=== PATIENT | female | born 1970 | race Caucasian/White ===

== ENCOUNTER 2016-12-22 14:35 | Emergency (ER) | payer SELFPAY ==
[2016-12-22] MEDS ORDERED: LORazepam 1 MG TABLET ONE (15:14)
[2016-12-22 15:17] LABS: Hematocrit 33.8 % (37.0-47.0); Hemoglobin 11.7 gm/dL (12.5-16.0); Mean Cell Volume 87.8 fl (78-100); Mean Corpuscular Hemoglobin 30.4 pg (27-31); Mean Corpuscular Hgb Conc 34.6 g/dl (32-36); Mean Platelet Volume 9.6 fl (6.0-9.5); Neutrophil # 4.4 K/mm3 (1.3-6.0); Platelet Count 325 K/mm3 (150-450); Red Blood Count 3.85 M/mm3 (4.2-5.4); Red Cell Distribution Width 12.6 % (11.5-14.0); White Blood Count 8.2 K/mm3 (4.0-10.5)
[2016-12-22] MEDS ORDERED: LORazepam 1 MG TABLET PO ONE (15:18)
[2016-12-22] MEDS ORDERED: BELLADONNA ALKALOIDS/PHENOBARB 60 ML BTL PO ONE (15:18)
[2016-12-22] MEDS ORDERED: SUCRALFATE 1 G/10 ML UDC PO ONE (15:18)
[2016-12-22] MEDS ORDERED: MAG HYDROX/ALUMINUM HYD/SIMETH 30 ML UDC PO ONE (15:18)
[2016-12-22] MEDS ORDERED: LIDOCAINE HCL 20 ML UDC PO ONE (15:18)
--- OUTSIDE RECORDS SUMMARY | 2016-12-22 15:29 | XMS REPORT | Continuity of Care Document ---
:1970 Author Organization [facility] ([facility]) Address [address] [place] [address] Phone [phone] Care Team Providers Name Role Phone Provider, No-Primary Care Primary Care Provider Unavailable Source Comments This disclosure is being made pursuant to the Care Everywhere program, applicable federal and state laws, and may not contain all informaitonavailable regarding this patient.[facility] ([facility]) Active Allergies and Adverse Reactions Not on File Current Medications Not on file Active Problems Problem Noted Date Recurrent dislocation of joint, site unspecified 07/05/2002 Follow-up examination, following unspecified surgery 05/25/2002 Other specified disorders of rotator cuff syndrome of shoulder and allied 05/2002 disorders Unspecified arthropathy, shoulder region 11/15/2001 Social History Tobacco Use Types Packs/Day Years Used Date Never Assessed Plan of Care Health Maintenance Due Date Last Done Comments Hepatitis B Vaccine (1 of 3 - Primary Series) 1970 Tdap Vaccine 1982 Lipid Disorder Screening 1989 MMR Vaccine 1989 Td Vaccine 1989 Cervical Cancer Screening 2001 Mammogram 2011 Influenza Vaccine: Seasonal (#1) 05/10/2016 Results from Last 3 Months Not on file
[2016-12-22 15:32] LABS: INR 1.06 INR (0.90-1.10); Partial Thrombolplastin Time 28.7 Seconds (24-32)
[2016-12-22 15:34] LABS: ALT 12 U/L (19-67); AST 11 U/L (0-48); Albumin * 3.6 gm/dl (3.4-5.0); Alkaline Phosphatase * 64 U/L (50-170); Anion Gap 15.7 mmol/L (6.8-13.8); BUN/Creatinine Ratio 9.5 (9.0-21.6); Bilirubin, Total 0.4 mg/dL (0.0-1.1); Blood Urea Nitrogen 7 mg/dL (3-23); Ca. Corrected For Albumin 8.6 mg/dL (8.4-10.2); Calcium * 8.6 mg/dL (7.9-10.9); Carbon Dioxide 22.8 mmol/L (24-32.6); Chloride 100 mmol/L (97-106); Glucose * 102 mg/dL (70-110); Potassium 3.5 mmol/L (3.4-4.6); Sodium 135 mmol/L (132-142); Total Protein 6.8 gm/dL (6.2-8.2); Troponin I Less than 0.017 ng/ml (0.00-0.10)
--- NOTE | 2016-12-22 15:59 | ERNOTE ---
Chest Pain/Cardiac HPI Date of Service: 12/22/16 Chief Complaint: Chest Pain Time Seen by Provider: 12/22/16 15:17 Source: patient Exam Limitations: no limitations Immunizations: IMMUNIZATION HX Immunizations Up to Date Yes History of Influenza Vaccine Yes Hx Pneumococcal Vaccination Yes Allergies/Adverse Reactions: Allergies No Known Allergies Allergy (Verified 12/22/16 15:58) Home Medications: HOME MEDICATIONS Naproxen [Naprosyn] 1 tab PO Q12H PRN #60 tab 12/22/16 [Last Taken Unknown] Orphenadrine Citrate [Norflex] 1 tab PO Q12H PRN #20 tablet.sa 12/22/16 [Last Taken Unknown] Verapamil HCl [Verapamil ER] 180 mg PO BID 12/22/16 [Last Taken Unknown] Narrative: Presents with c/o chest pain, onset 3 days ago, characterized as spasms/ fluttering of her chest in mid sternal area. Pt states occurrences have been intermittent, and when it does, it "takes my breath away", she says. Other symptoms include tingling sensation in both UE, and radiation of pain into her mid back. Denies any fever, chills, or cough. Timing: intermittent Severity/Quality: severe, aching, sharp, stabbing Location: central Chest Pain Radiation: back Activities at Onset: none Associated Symptoms: Present: shortness of breath, heartburn. Absent: headache , dizziness, syncope, cough, diaphoresis, fever/chills, palpitations, nausea, vomiting, abdominal pain, weakness, back pain, swelling/lump in chest Review of Systems - Review of Systems Constitutional: Present: no symptoms reported EYE: Present: no symptoms reported ENT: Present: no symptoms reported Respiratory: Present: no symptoms reported Cardiology: Present: See HPI, chest pain Gastrointestinal/Abdominal: Present: no symptoms reported Genitourinary: Present: no symptoms reported Musculoskeletal: Present: no symptoms reported Skin: Present: no symptoms reported Neurological: Present: no symptoms reported Endocrine: Present: no symptoms reported Hematologic/Lymphatic: Present: no symptoms reported Psych: Present: emotional problems All Other Systems: All systems neg except as marked - Social History Living Situations: spouse Abuse History: No History of abuse Psych History: No pertinent hx Smoking Status: Current every day smoker Have you smoked in the past 12 months: Yes Smoking Start Date: 12/22/16 Alcohol Use: none Drug Use: none - Immunizations Immunizations Up to Date: Yes Hx Pneumococcal Vaccination: Yes History of Influenza Vaccine: Yes Physical Exam - Physical Exam General Appearance: Present: wd/wn, alert, mild distress - Due to anxiety. , anxious Eye Exam: Normal inspection: bilateral, PERRL: bilateral, EOMI: bilateral Ears, Nose, Throat: Present: normal ENT inspection, normal pharynx Neck: Present: normal inspection, nontender Respiratory: Present: no respiratory distress, normal breath sounds, no accessory muscle use, lungs clear, chest tenderness - moderate TTP of mid- sternum and left anterior chest wall. Pain reproduced. Cardiovascular/Chest: Present: regular rate, rhythm, no murmur Gastrointestinal/Abdominal: Present: normal bowel sounds, nontender, nondistended, soft, no organomegaly Back Exam: Present: normal range of motion Neurological Exam: Present: alert, oriented, normal mood/affect, no motor/ sensory deficits Skin Exam: Present: normal color, warm/dry ED Progress - Results and Orders Patient's Lab Results:: I have reviewed the patient's lab results. - Vital Signs Patient's Vital Signs:: I have reviewed the patient's vital signs. Vital Signs: Vital Signs 12/22/16 12/22/16 12/22/16 14:39 15:00 15:45 Temperature 37.1 C 37.1 C 37.3 C Pulse Rate 81 81 83 Respiratory 24 H 24 H 16 Rate Blood Pressure 144/88 144/88 135/86 O2 Sat by Pulse 99 98 Oximetry - EKG EKG: nonspecific ST T wave changes - Sinus rhythm @ 90bpm EKG read: Interp. by me - X-Ray X-Ray #1 X-Ray: chest - No infiltrates or consolidation; consistent with chronic/acute brochitis per radiologist. Interpretation: Reviewed by me - Progress/Reassessment Chief Complaint: Chest Pain Departure - Departure Clinical Impression: Chest wall pain Disposition: Home self-care Condition: Good Instructions: Chest Wall Pain, [id number] Prescriptions: Naproxen [Naprosyn] 1 tab PO Q12H PRN #60 tab PRN Reason: Pain Orphenadrine Citrate [Norflex] 1 tab PO Q12H PRN #20 tablet.sa PRN Reason: Muscle spasm or pain
[2016-12-22] MEDS ORDERED: KETOROLAC TROMETHAMINE 60 MG/2 ML VIAL IM ONE ×2 (16:01→16:35)
[2016-12-22] MEDS ORDERED: ORPHENADRINE CITRATE 30 MG/ML VIAL IM ONE (16:01)
[2016-12-22] MEDS ORDERED: ORPHENADRINE CITRATE 30 MG/ML VIAL ONE (16:35)
[2016-12-22 17:18] VITALS: BP 126/81
== END 2016-12-22 18:26 | disposition home or self-care (01) ==
LOC: ER 14:35
DX: R07.89 Other chest pain (principal); F17.210 Nicotine dependence, cigarettes, uncomplicated